=== PATIENT | male | born 1985 | race Caucasian/White ===

== ENCOUNTER 2022-11-27 11:00 | Emergency (ER) | payer BC, SELFPAY ==
--- NOTE | 2022-11-27 11:08 | ECG_ITS ---
Test Reason : cp Blood Pressure : / mmHG Vent. Rate : 079 BPM Atrial Rate : 079 BPM P-R Int : 140 ms QRS Dur : 084 ms QT Int : 370 ms P-R-T Axes : 019 053 034 degrees QTc Int : 424 ms Normal sinus rhythm with sinus arrhythmia Normal ECG No previous ECGs available Referred By: Cathie Chapa Electronically Signed By:DUYEN CHÁVEZ MD
[2022-11-27 11:25] LABS: MANUAL DIFF FLAG NO
[2022-11-27 11:28] VITALS: BP 145/93; PULSE 71; RESP 16; TEMP 36.4; O2SAT 99; BMI 27.7
--- NOTE | 2022-11-27 11:29 | ED_ITS ---
HPI - Arrhythmia/Palpitations General Chief Complaint: Arrhythmia/Palpitations <ROHAN Metz - Last Filed: 11/27/22 11:31> Stated Complaint: heart palpations <ROHAN Metz - Last Filed: 11/27/22 11:31> Time Seen by Provider: 11/27/22 13:12 <ROHAN Metz - Last Filed: 11/27/22 11:31> Source: patient <Jame Pearson MD - Last Filed: 11/27/22 16:35> Mode of arrival: ambulatory <Jame Pearson MD - Last Filed: 11/27/22 16:35> Limitations: no limitations <Jame Pearson MD - Last Filed: 11/27/22 16:35> History of Present Illness HPI narrative: Patient presented to the emergency department complaining of palpitation for about 3 days no syncope, he denies any stimulant ingestion such as cocaine, denies any chest pain or shortness of breath. He has no comorbidity <Jame Pearson MD - Last Filed: 11/27/22 16:35> MD complaint: rapid heart beat and heart racing <Jame Pearson MD - Last Filed: 11/27/22 16:35> Onset (ago): day(s) (3) <Jame Pearson MD - Last Filed: 11/27/22 16:35> Duration: constant <Jame Pearson MD - Last Filed: 11/27/22 16:35> Severity: mild <Jame Pearson MD - Last Filed: 11/27/22 16:35> Context: occurred during rest <Jame Pearson MD - Last Filed: 11/27/22 16:35> Associated symptoms: denies other symptoms <Jame Pearson MD - Last Filed: 11/27/22 16:35> Related Data Allergies/Adverse Reactions: Allergies Allergy/AdvReac Type Severity Reaction Status Date / Time No Known Allergies Allergy Verified 11/27/22 11:32 <ROHAN Metz - Last Filed: 11/27/22 11:31> Review of Systems Constitutional: Constitutional: Reports no additional constitutional complaints <Jame Pearson MD - Last Filed: 11/27/22 16:35> ENT: Reports system reviewed and no additional complaints, except as documented <Jame Pearson MD - Last Filed: 11/27/22 16:35> Cardiovascular: Cardiovascular: Reports no additional cardiovascular complaints <Jame Pearson MD - Last Filed: 11/27/22 16:35> Neurologic: Reports system reviewed and no additional complaints, except as documented <Jame Pearson MD - Last Filed: 11/27/22 16:35> [facility] Past Medical History Attestation statement: The following information was validated with the patient. <Jame Pearson MD - Last Filed: 11/27/22 16:35> [facility] Narrative: none <Jame Pearson MD - Last Filed: 11/27/22 16:35> Social History Social History: Social History Alcohol intake: current Alcohol intake frequency: a few times a month Smoked in Last 30 Days: No Use of substances other than those prescribed or required for medical reasons: No Advance Directives: No Advance Directives Information Provided: Yes <ROHAN Metz - Last Filed: 11/27/22 11:31> Physical Exam Vital Signs: Vital Signs: Last Vital Signs Temp 97.6 F 11/27/22 11:28 Pulse 69 11/27/22 13:53 Resp 22 H 11/27/22 13:53 BP 127/90 H 11/27/22 13:53 Pulse Ox 99 11/27/22 13:53 O2 Del Method Room Air 11/27/22 13:53 BMI result Body Mass Index 27.7 <ROHAN Metz - Last Filed: 11/27/22 11:31> Vital Signs: Last Vital Signs Temp 97.6 F 11/27/22 11:28 Pulse 69 11/27/22 13:53 Resp 22 H 11/27/22 13:53 BP 127/90 H 11/27/22 13:53 Pulse Ox 99 11/27/22 13:53 O2 Del Method Room Air 11/27/22 13:53 BMI result Body Mass Index 27.7 <Jame Pearson MD - Last Filed: 11/27/22 16:35> Const: General: cooperative, healthy appearing, comfortable, no acute distress, alert and awake <MD Lina Barriga Last Filed: 11/27/22 16:35> Nutritional Appearance: average body habitus and well nourished <MD Lina Barriga Last Filed: 11/27/22 16:35> Orientation/consciousness: patient oriented x3 <MD Lina Barriga Last Filed: 11/27/22 16:35> Limitations: no limitations <MD Lina Barriga Last Filed: 11/27/22 16:35> HEENT: Head: Yes normal to inspection <MD Lina Barriga Last Filed: 11/27/22 16:35> Ears: hearing grossly normal bilaterally <MD Lina Barriga Last Filed: 11/27/22 16:35> General nose exam: Normal external nose present <MD Lina Barriga Last Filed: 11/27/22 16:35> Face and sinus: Yes normal facial exam <MD Lina Barriga Last Filed: 11/27/22 16:35> Mouth: Normal oral and palatal mucosa present <MD Lina Barriga Last Filed: 11/27/22 16:35> Teeth and gingiva: dentition normal <MD Lina Barriga Last Filed: 11/27/22 16:35> Eyes: General: appearance normal, both eyes and all related structures <MD Lina Barriga Last Filed: 11/27/22 16:35> Chest: Chest palpation & inspection: normal inspection of the chest and normal palpation of entire chest wall <MD Lina Barriga Last Filed: 11/27/22 16:35> Resp: Effort & Inspection: normal respiratory effort and able to speak in complete sentences <MD Lina Barriga Last Filed: 11/27/22 16:35> Auscultation: clear to auscultation bilaterally <MD Lina Barriga Last Filed: 11/27/22 16:35> Cardio: Jugular venous distension: no JVD <MD Lina Barriga Last Filed: 11/27/22 16:35> Rate: regular rate <MD Lina Barriga Last Filed: 11/27/22 16:35> Rhythm: regular rhythm <Jame Pearson MD - Last Filed: 11/27/22 16:35> GI: Inspection: Yes normal to inspection <Jame Pearson MD - Last Filed: 11/27/22 16:35> Palpation (GI): Soft to palpation, not firm, nontender and no guarding <Jame Pearson MD - Last Filed: 11/27/22 16:35> Auscultation: normal bowel sounds <Jame Pearson MD - Last Filed: 11/27/22 16:35> Skin: General skin exam: no rashes or lesions noted, elasticity normal and turgor normal <Jame Pearson MD - Last Filed: 11/27/22 16:35> Lesions: no lesions <Jame Pearson MD - Last Filed: 11/27/22 16:35> Wounds: no wounds <Jame Pearson MD - Last Filed: 11/27/22 16:35> Neuro: General: patient oriented x3 <Jame Pearson MD - Last Filed: 11/27/22 16:35> Extrem: General: Yes normal to inspection, Yes full ROM and Yes capillary ref ill normal <Jame Pearson MD - Last Filed: 11/27/22 16:35> Course Course Course Narrative: RME - 37 yo male with no medical history presents to the ER for evaluation of intermittent palpitations for the last 1 week. Occurs a couple of times per day, worse at night and affecting sleep the last 2 nights. Described as skipped beats or pounding outside of his chest. No SOB or chest pain. No caffiene, ETOH or drugs. VSS in triage, slightly hypertensive 140/90s. HR 70s. Plan: EKG, lab workup. <ROHAN Metz - Last Filed: 11/27/22 11:31> Reevaluation(s) Reevaluation #1: Patient was monitored in the emergency department for about 2-3 hours he remained in sinus rhythm a EKG shows sinus rhythm a troponin negative, he can be discharged home follow-up with PCP/cardiology <Jame Pearson MD - Last Filed: 11/27/22 16:35> Time: 16:34 <Jame Pearson MD - Last Filed: 11/27/22 16:35> Medical Decision Making Medical Decision Making [facility] Narrative: Patient presented with palpitations no syncope will check labs EKG and reassess. 4.35 PM remain in sinus rhythm a asymptomatic labs normal troponin normal he can be discharged home with follow-up primary care physician or ballet teacher <Jame Pearson MD - Last Filed: 11/27/22 16:35> Differential Diagnosis Differential Diagnoses: The differential diagnosis associated with the presentation includes <Jame Pearson MD - Last Filed: 11/27/22 16:35> PVCs /SVT/rapid AFib <Jame Pearson MD - Last Filed: 11/27/22 16:35> Admission/Observation Consideration of admission/observation: Escalation of care including admission/observation considered <Jame Pearson MD - Last Filed: 11/27/22 16:35> Lab Data [facility] Lab Attestation statement: I reviewed the patient's lab results. <Jame Pearson MD - Last Filed: 11/27/22 16:35> Result Diagrams: 11/27/22 11:18 11/27/22 11:18 <ROHAN Metz - Last Filed: 11/27/22 11:31> Labs: Lab Results 11/27/22 11/27/22 11/27/22 Range/Units 11:18 11:18 15:48 WBC 6.8 (4.8-10.8) X10*3/uL RBC 5.61 (4.60-5.80) X10*6/uL Hgb 16.7 (14.0-18.0) g/dl Hct 49.1 (42.0-52.0) % MCV 87.5 (80.0-98.0) fL MCH 29.8 (27.0-33.0) pg MCHC 34.0 (31.0-36.0) g/dl RDW 13.2 (11.0-16.0) % Plt Count 249 (160-400) X10*3/uL MPV 10.8 (9.4-12.4) fL Immature Gran % (Auto) 0.3 (0.0-0.4) % Neut % (Auto) 61.3 (45-73) % Lymph % (Auto) 28.7 (20-40) % [place] % (Auto) 7.8 (2-11) % Eos % (Auto) 1.3 (0-4) % Baso % (Auto) 0.6 (0-2) % Lymph # (Auto) 2.0 (1.2-4.9) X10*3/uL [place] # (Auto) 0.5 (0.1-1.2) X10*3/uL Eos # (Auto) 0.1 (0.0-0.4) X10*3/uL Baso # (Auto) 0.0 (0.0-0.2) X10*3/uL Abs Immat Gran (auto) 0.02 (0.00-0.03) X10*3/uL Absolute Neuts (auto) 4.2 (2.0-8.3) x10*3/uL Absolute Nucleated RBC 0.000 (0.0-0.012) X10*3/uL Nucleated RBC % (auto) 0.0 (0.0-0.2) /100WBC Sodium 140 (135-145) mmol/L Potassium 4.0 (3.3-5.1) mmol/L Chloride 107 (96-108) mmol/L Carbon Dioxide 24 (22-29) mmol/L Anion Gap 13 (12-20) BUN 16 (9-16) mg/dL Creatinine 0.98 (0.5-1.4) mg/dL Estim Creat Clear Calc 107.5 Estimated GFR > 60 Random Glucose 105 (60-115) mg/dL Calcium 9.7 (8.4-10.2) mg/dL Magnesium 2.2 (1.6-2.6) mg/dL Total Bilirubin 1.3 H (0.0-1.0) mg/dL Direct Bilirubin 0.3 (0.0-0.5) mg/dL AST 17 (5-37) U/L ALT 25 (0-40) U/L Alkaline Phosphatase 82 (39-117) U/L Troponin I High Sens < 2.7 (<3.5-35.0) ng/L Total Protein 7.0 (6.5-8.0) g/dL Albumin 4.4 (3.5-5.0) g/dL TSH 1.41 (0.32-4.0) uIU/mL <ROHAN Metz - Last Filed: 11/27/22 11:31> Lab Results 11/27/22 11/27/22 11/27/22 Range/Units 11:18 11:18 15:48 WBC 6.8 (4.8-10.8) X10*3/uL RBC 5.61 (4.60-5.80) X10*6/uL Hgb 16.7 (14.0-18.0) g/dl Hct 49.1 (42.0-52.0) % MCV 87.5 (80.0-98.0) fL MCH 29.8 (27.0-33.0) pg MCHC 34.0 (31.0-36.0) g/dl RDW 13.2 (11.0-16.0) % Plt Count 249 (160-400) X10*3/uL MPV 10.8 (9.4-12.4) fL Immature Gran % (Auto) 0.3 (0.0-0.4) % Neut % (Auto) 61.3 (45-73) % Lymph % (Auto) 28.7 (20-40) % [place] % (Auto) 7.8 (2-11) % Eos % (Auto) 1.3 (0-4) % Baso % (Auto) 0.6 (0-2) % Lymph # (Auto) 2.0 (1.2-4.9) X10*3/uL [place] # (Auto) 0.5 (0.1-1.2) X10*3/uL Eos # (Auto) 0.1 (0.0-0.4) X10*3/uL Baso # (Auto) 0.0 (0.0-0.2) X10*3/uL Abs Immat Gran (auto) 0.02 (0.00-0.03) X10*3/uL Absolute Neuts (auto) 4.2 (2.0-8.3) x10*3/uL Absolute Nucleated RBC 0.000 (0.0-0.012) X10*3/uL Nucleated RBC % (auto) 0.0 (0.0-0.2) /100WBC Sodium 140 (135-145) mmol/L Potassium 4.0 (3.3-5.1) mmol/L Chloride 107 (96-108) mmol/L Carbon Dioxide 24 (22-29) mmol/L Anion Gap 13 (12-20) BUN 16 (9-16) mg/dL Creatinine 0.98 (0.5-1.4) mg/dL Estim Creat Clear Calc 107.5 Estimated GFR > 60 Random Glucose 105 (60-115) mg/dL Calcium 9.7 (8.4-10.2) mg/dL Magnesium 2.2 (1.6-2.6) mg/dL Total Bilirubin 1.3 H (0.0-1.0) mg/dL Direct Bilirubin 0.3 (0.0-0.5) mg/dL AST 17 (5-37) U/L ALT 25 (0-40) U/L Alkaline Phosphatase 82 (39-117) U/L Troponin I High Sens < 2.7 (<3.5-35.0) ng/L Total Protein 7.0 (6.5-8.0) g/dL Albumin 4.4 (3.5-5.0) g/dL TSH 1.41 (0.32-4.0) uIU/mL <Jame Pearson MD - Last Filed: 11/27/22 16:35> Discharge Plan Discharge Clinical Impression: Palpitations <ROHAN Metz - Last Filed: 11/27/22 11:31> Patient Disposition: Home, Self-Care <ROHAN Metz - Last Filed: 11/27/22 11:31> Instructions: Heart Palpitations (DC) <RHOAN Metz - Last Filed: 11/27/22 11:31> Additional Instructions: Follow-up with your primary care physician or ballet teacher we recommend an outpatient Holter and that can be done by a [facility] PCP or ballet teacher we will give you the number for our ballet teacher <ROHAN Metz - Last Filed: 11/27/22 11:31> Referrals: Polo Napoles MD [Physician] - 3 days <ROHAN Metz - Last Filed: 11/27/22 11:31>
[2022-11-27 11:31] LABS: Basophils Percent Auto 0.6 % (0-2); Eosinophils Absolute Auto 0.1 X10*3/uL (0.0-0.4); Eosinophils Percent Auto 1.3 % (0-4); Hematocrit 49.1 % (42.0-52.0); Hemoglobin 16.7 g/dl (14.0-18.0); Imm Gran Abs Auto 0.02 X10*3/uL (0.00-0.03); Imm Gran Pct Auto 0.3 % (0.0-0.4); Lymphocytes Percent Auto 28.7 % (20-40); Mean Corpuscular Hemoglobin 29.8 pg (27.0-33.0); Mean Corpuscular Volume 87.5 fL (80.0-98.0); Mean Platelet Volume 10.8 fL (9.4-12.4); Monocytes Absolute Auto 0.5 X10*3/uL (0.1-1.2); Monocytes Percent Auto 7.8 % (2-11); Neutrophils Absolute Auto 4.2 x10*3/uL (2.0-8.3); Neutrophils Percent Auto 61.3 % (45-73); Platelet Count 249 X10*3/uL (160-400); Red Blood Count 5.61 X10*6/uL (4.60-5.80); Red Cell Distribution Width 13.2 % (11.0-16.0); White Blood Count 6.8 X10*3/uL (4.8-10.8)
[2022-11-27 11:51] LABS: Alanine Aminotransferase 25 U/L (0-40); Albumin Level 4.4 g/dL (3.5-5.0); Alkaline Phosphatase 82 U/L (39-117); Anion Gap 13 (12-20); Aspartate Amino Transferase 17 U/L (5-37); Bilirubin Direct 0.3 mg/dL (0.0-0.5); Bilirubin Total 1.3 mg/dL (0.0-1.0); Blood Urea Nitrogen 16 mg/dL (9-16); Calcium 9.7 mg/dL (8.4-10.2); Carbon Dioxide 24 mmol/L (22-29); Chloride 107 mmol/L (96-108); Creatinine Clr Calc Pharmacy 107.5; Estimated Glomerular Filt Rate > 60; Glucose Random 105 mg/dL (60-115); Magnesium 2.2 mg/dL (1.6-2.6); Sodium 140 mmol/L (135-145)
[2022-11-27 12:05] LABS: TSH reflex Free T4 1.41 uIU/mL (0.32-4.0)
[2022-11-27 13:53] VITALS: BP 127/90; PULSE 69; RESP 22; O2SAT 99
[2022-11-27 16:23] LABS: Troponin-I High Sensitivity < 2.7 ng/L (<3.5-35.0)
[2022-11-27 16:54] VITALS: BP 130/89; PULSE 77; RESP 16; TEMP 36.6; O2SAT 97
== END 2022-11-27 16:59 | disposition home or self-care (01) ==
PROVIDERS: Physician Assistant; Emergency Provider Emergency Medicine
DX: I49.9 Cardiac arrhythmia, unspecified (principal); R00.2 Palpitations; Z79.899 Other long term (current) drug therapy
CPT/HCPCS: 36415; 80048; 80076; 83735; 84443; 84484; 85025; 93005; 99283; 99285